=== PATIENT | female | born 1990 | race Hispanic/Latino ===

== ENCOUNTER 2022-01-23 13:41 | Emergency (ER) | payer SELFPAY ==
[~2022-01-23] VITALS: Ht 154.9 cm; Wt 80.7 kg
[2022-01-23 14:20] LABS: BASOPHILS % (AUTO) 0.7 % (0.0-5.0); EOSINOPHILS % (AUTO) 0.8 % (0.0-8.0); HEMATOCRIT 39.7 % (36-48); LYMPHOCYTES % (AUTO) 25.8 % (21.0-51.0); MEAN CORPUSCULAR HEMOGLOBIN 29.2 pg (27.0-33.0); MEAN CORPUSCULAR HGB CONC 35.3 g/dL (32.0-36.0); MEAN CORPUSCULAR VOLUME 82.9 fL (79-99); MONOCYTES % (AUTO) 7.1 % (3.0-13.0); NEUTROPHILS % (AUTO) 65.4 % (40.0-77.0); PLATELET COUNT (AUTO) 295 K/uL (130-400); RED BLOOD CELL COUNT(AUTO) 4.79 MIL/uL (4.00-5.50); RED CELL DISTRIBUTION WIDTH 11.9 % (11.0-15.5); WHITE BLOOD COUNT (AUTO) 8.9 K/uL (4.8-10.8)
[2022-01-23 14:21] LABS: APPEARANCE,URINE CLEAR (CLEAR); BILIRUBIN,URINE NEGATIVE (NEGATIVE); COLOR,URINE YELLOW (YELLOW); GLUCOSE, URINE (UA) NEGATIVE (NEGATIVE); KETONES,URINE NEGATIVE (NEGATIVE); LEUKOCYTE ESTERASE ,URINE NEGATIVE (NEGATIVE); NITRATE,URINE NEGATIVE (NEGATIVE); OCCULT BLOOD,URINE NEGATIVE (NEGATIVE); PROTEIN,URINE NEGATIVE (NEGATIVE)
[2022-01-23 14:25] LABS: HCG,QUALITATIVE URINE NEGATIVE (NEGATIVE)
[2022-01-23 14:27] LABS: AMPHET/METH SCREEN,URINE NEGATIVE (NEGATIVE); BARBITURATE SCREEN, URINE NEGATIVE (NEGATIVE); BENZODIAZEPINES SCREEN,URINE NEGATIVE (NEGATIVE); CANNABINOID SCREEN,URINE POSITIVE (NEGATIVE); COCAINE SCREEN,URINE NEGATIVE (NEGATIVE); PHENCYCLIDINE SCREEN,URINE NEGATIVE (NEGATIVE)
[2022-01-23 14:33] LABS: CREATININE 0.8 mg/dL (0.5-1.5); POTASSIUM 3.7 mmol/L (3.5-5.1)
[2022-01-23 14:37] LABS: TOTAL PROTEIN, SERUM 7.4 g/dL (6.0-8.3)
[2022-01-23] MEDS ORDERED: HYDR-3422 PO (14:48)
[2022-01-23] MEDS ORDERED: LORAZEPAM 1 MG TABLET PO ONE (15:00)
[2022-01-23 15:09] VITALS: BP 105/61
== END 2022-01-23 15:20 | disposition home or self-care (01) ==
LOC: EDH 13:41
DX: F41.9 Anxiety disorder, unspecified (principal); F32.A Depression, unspecified; R20.2 Paresthesia of skin; Z20.822 Contact with and (suspected) exposure to COVID-19; R06.02 Shortness of breath; Z90.49 Acquired absence of other specified parts of digestive tract
CPT/HCPCS: 99284; 87635; 83735; 84484; 80053; 80305; 85025; 81025; 36415; 93005; 81003; C9803

== ENCOUNTER 2022-02-08 21:27 | Emergency (ER) | payer OTHER ==
[~2022-02-08] VITALS: Ht 154.9 cm; Wt 81.6 kg
[~2022-02-08 21:27] MED LIST: HYDR-3422 PO
[2022-02-08 21:29] VITALS: BP 119/79
[2022-02-08] MEDS ORDERED: FLUCONAZOLE 100 MG TAB PO ONE (22:30)
== END 2022-02-08 22:38 | disposition home or self-care (01) ==
LOC: EDH 21:27
DX: B37.3 Candidiasis of vulva and vagina (principal); F41.9 Anxiety disorder, unspecified; F32.A Depression, unspecified